=== PATIENT | female | born 2000 | race Caucasian/White ===

== ENCOUNTER 2022-01-27 14:45 | Inpatient (IN) | payer MEDICAID ==
[~2022-01-27] VITALS: Ht 165.1 cm; Wt 103.0 kg
[2022-01-27] MEDS ORDERED: METHYLERGONOVINE 0.2 MG/ML AMP IM PRN (15:10)
[2022-01-27] MEDS ORDERED: CARBOPROST 250 MCG/ML AMP IM PRN (15:10)
[2022-01-27] MEDS ORDERED: MORPHINE SULFATE 2 MG/ML SYR IVP PRN (15:40)
[2022-01-27 15:43] LABS: BASOPHILS % (AUTO) 0.3 % (0.0-2.0); EOSINOPHILS # (AUTO) 0.1 K/uL (0-0.4); EOSINOPHILS % (AUTO) 0.5 % (0.0-4.0); HEMATOCRIT 37.5 % (36-48); HEMOGLOBIN 12.5 g/dL (12.0-16.0); LYMPHOCYTES # (AUTO) 2.2 K/uL (2.5-16.5); LYMPHOCYTES % (AUTO) 21.6 % (20.5-51.1); MEAN CORPUSCULAR HEMOGLOBIN 28 pg (27-31); MEAN CORPUSCULAR HGB CONC 33 g/dL (33-37); MEAN CORPUSCULAR VOLUME 83.8 fL (80-94); MONOCYTES # (AUTO) 0.7 K/uL (0.8-1.0); MONOCYTES % (AUTO) 7.4 % (1.7-9.3); NEUTROPHILS % (AUTO) 70.2 % (42.2-75.2); PLATELET COUNT (AUTO) 241 K/uL (140-450); RED BLOOD CELL COUNT(AUTO) 4.47 MIL/uL (4.20-5.40); RED CELL DISTRIBUTION WIDTH 15.2 % (11.6-13.7)
[2022-01-27] MEDS: LACTATED RINGERS 1,000 ML IV SCH (16:05)
[2022-01-27 16:13] LABS: APPEARANCE,URINE CLEAR (CLEAR); BILIRUBIN,URINE NEGATIVE (NEGATIVE); BLOOD, URINE TRACE-I (NEGATIVE); COLOR,URINE YELLOW (YELLOW); LEUKOCYTE ESTERASE ,URINE NEGATIVE (NEGATIVE); NITRITE, URINE NEGATIVE (NEGATIVE); UGLUCOSE NEGATIVE (NEGATIVE)
[2022-01-27] MEDS ORDERED: AMPICILLIN 2,000 MG in NACL 0.9% 100 ML IV SCH (16:20)
[2022-01-27] MEDS ORDERED: OXYTOCIN 20 UNITS in LACTATED RINGERS 1,000 ML IV SCH (16:20)
[2022-01-27 16:23] LABS: ALBUMIN 2.6 g/dL (3.4-5.0); CARBON DIOXIDE 24.7 mmol/L (21-32); CREATININE 0.6 mg/dL (0.6-1.3); POTASSIUM 3.7 mmol/L (3.5-5.1); TOTAL BILIRUBIN 0.2 mg/dL (0.0-1.0)
[2022-01-27] MEDS ORDERED: AMPICILLIN 2,000 MG VIAL ONE (16:33)
[2022-01-27 17:08] LABS: RBC,URINE 0-5 /HPF (0-5); WBC,URINE NONE SEEN /HPF (0-5)
[2022-01-27 17:20] LABS: PROTHROMBIN TIME 10.6 secs (10.8-13.4)
[2022-01-27] MEDS ORDERED: AMPICILLIN 1,000 MG in NACL 0.9% 50 ML IV SCH (20:00)
[2022-01-27] MEDS ORDERED: OXYTOCIN 20 UNITS/LR PREMIX 1,000 ML IV ONE (20:09)
[2022-01-27] MEDS ORDERED: AMPICILLIN 1,000 MG VIAL ONE (20:32)
[2022-01-27] MEDS ORDERED: MORPHINE SULFATE 10 MG/ML VIAL ONE (22:49)
[2022-01-27] MEDS: ONDANSETRON 4 MG/2 ML VIAL IVP PRN (22:56)
[2022-01-28] MEDS: LACTATED RINGERS 1,000 ML IV SCH ×2 (00:02→01:01)
[2022-01-28] MEDS ORDERED: ROPIVACAINE 0.2%/NS PREMIX 200 ML EPI ONE (00:21)
[2022-01-28] MEDS ORDERED: fentaNYL citrate 0.05 MG/ML VIAL ONE (00:21)
[2022-01-28] MEDS: ONDANSETRON 4 MG/2 ML VIAL IVP PRN (05:12)
[2022-01-28] MEDS ORDERED: BENZOCAINE/MENTHOL 20%-0.5% 60 GM CAN TP PRN (10:50)
[2022-01-28] MEDS ORDERED: OXYTOCIN 10 UNITS/ML VIAL IM PRN (10:50)
[2022-01-28] MEDS ORDERED: METHYLERGONOVINE 0.2 MG TAB PO PRN (10:50)
[2022-01-28] MEDS ORDERED: MEASLES, MUMPS, AND RUBELLA 1 VIAL SQVAC ONE (10:50)
[2022-01-28] MEDS ORDERED: METHYLERGONOVINE 0.2 MG/ML AMP IM PRN (10:50)
--- NOTE | 2022-01-28 10:59 | NUR ---
PATIENT HAS BEEN SCREENED AND CATEGORIZED LOW NUTRITION RISK. PATIENT WILL BE SEEN WITHIN 7 DAYS OF ADMISSION. 02/03/22 REVIEWED BY ZOEY HOFFMAN [address]
[2022-01-28] MEDS ORDERED: MEASLES, MUMPS, AND RUBELLA 1 VIAL SQVAC SCH (11:15)
[2022-01-28] MEDS: IBUPROFEN 800 MG TAB PO PRN (15:01)
[2022-01-28] MEDS ORDERED: HYDROcodone/APAP 5/325 MG 1 TAB TAB PO SCH (18:50)
[2022-01-28] MEDS ORDERED: HYDROcodone/APAP 5/325 MG 1 TAB TAB ONE (18:53)
[2022-01-29] MEDS: IBUPROFEN 800 MG TAB PO PRN (03:25)
[2022-01-29 10:14] LABS: HEMOGLOBIN 10.9 g/dL (12.0-16.0)
== END 2022-01-29 13:30 | disposition home or self-care (01) | DRG 560 ==
LOC: MLD 14:45 → MFCC 01-28 10:31
PROVIDERS: ADMIT Obstetrics & Gynecology; ATTEND Obstetrics & Gynecology
PROC: 10E0XZZ Delivery of Products of Conception, External Approach (ICD-10-PCS; principal; 2022-01-27)
PROC: 0KQM0ZZ Repair Perineum Muscle, Open Approach (ICD-10-PCS; 2022-01-27)
PROC: 3E0R3BZ Introduction of Anesthetic Agent into Spinal Canal, Percutaneous Approach (ICD-10-PCS; 2022-01-27)
PROC: 00HU33Z Insertion of Infusion Device into Spinal Canal, Percutaneous Approach (ICD-10-PCS; 2022-01-27)
DX: O69.1XX0 Labor and delivery complicated by cord around neck, with compression, not applicable or unspecified (principal); Z37.0 Single live birth; O70.1 Second degree perineal laceration during delivery; Z3A.39 39 weeks gestation of pregnancy; Z20.822 Contact with and (suspected) exposure to COVID-19; O90.81 Anemia of the puerperium
CPT/HCPCS: 36415; 51702; 59070; 76815; 80053; 81001; 85018; 85025; 85610; 85730; 86592; 86886; 86900; 86901; 87653-90; 90715; J0290; J2270; J2405; J2590; J2795; J3010; J7120; Q0092

== ENCOUNTER 2023-04-18 22:47 | Inpatient (IN) | payer MEDICAID ==
[~2023-04-18] VITALS: Ht 165.1 cm; Wt 107.5 kg
[2023-04-18 23:00] VITALS: BP 114/76; PULSE 76; RESP 18; TEMP 98.3
[2023-04-18] MEDS ORDERED: LACTATED RINGERS 1,000 ML IV SCH (23:10)
[2023-04-18] MEDS ORDERED: OXYTOCIN/0.9 % SODIUM CHLORIDE 500 ML IV SCH (23:10)
[2023-04-18] MEDS ORDERED: METHYLERGONOVINE 0.2 MG/ML AMP IM PRN (23:10)
[2023-04-18] MEDS ORDERED: AMPICILLIN 2,000 MG VIAL ONE (23:49)
[2023-04-18] MEDS: AMPICILLIN 2,000 MG in NACL 0.9% MINI-BAG PLUS 100 ML IV ONE (23:53)
[2023-04-18 23:56] VITALS: BP 121/74; PULSE 72; RESP 18
[2023-04-18] MEDS: MORPHINE SULFATE 10 MG/ML VIAL IVP PRN (23:56)
[2023-04-18] MEDS: ONDANSETRON 4 MG/2 ML VIAL IVP PRN (23:59)
[2023-04-19] MEDS ORDERED: AMPICILLIN 1,000 MG in NACL 0.9% MINI-BAG PLUS 50 ML IV SCH
[2023-04-19] MEDS ORDERED: LIDOCAINE 1% 500 MG/50 ML VIAL ONE (00:30)
[2023-04-19] MEDS ORDERED: TRANEXAMIC ACID 1,000 MG/10 ML VIAL ONE (00:55)
[2023-04-19] MEDS: CARBOPROST 250 MCG/ML AMP IM PRN (01:10)
[2023-04-19 01:18] LABS: BASOPHILS % (AUTO) 0.3 % (0.0-2.0); EOSINOPHILS # (AUTO) 0.1 K/uL (0-0.4); EOSINOPHILS % (AUTO) 0.7 % (0.0-4.0); HEMATOCRIT 36.7 % (36-48); HEMOGLOBIN 12.5 g/dL (12.0-16.0); LYMPHOCYTES # (AUTO) 1.7 K/uL (2.5-16.5); LYMPHOCYTES % (AUTO) 16.7 % (20.5-51.1); MEAN CORPUSCULAR HEMOGLOBIN 28 pg (27-31); MEAN CORPUSCULAR HGB CONC 34 g/dL (33-37); MEAN CORPUSCULAR VOLUME 82.3 fL (80-94); MONOCYTES # (AUTO) 0.9 K/uL (0.8-1.0); MONOCYTES % (AUTO) 9.1 % (1.7-9.3); NEUTROPHILS # (AUTO) 7.3 K/uL (1.8-7.7); NEUTROPHILS % (AUTO) 73.2 % (42.2-75.2); PLATELET COUNT (AUTO) 202 K/uL (140-450); RED BLOOD CELL COUNT(AUTO) 4.46 MIL/uL (4.20-5.40); RED CELL DISTRIBUTION WIDTH 15.6 % (11.6-13.7)
[2023-04-19 01:23] LABS: APPEARANCE,URINE HAZY (CLEAR); BILIRUBIN,URINE NEGATIVE (NEGATIVE); BLOOD, URINE 2+ (NEGATIVE); COLOR,URINE YELLOW (YELLOW); LEUKOCYTE ESTERASE ,URINE 3+ (NEGATIVE); NITRITE, URINE NEGATIVE (NEGATIVE); PH,URINE 6.5 (5.0-9.0); PROTEIN,URINE NEGATIVE (NEGATIVE); UGLUCOSE NEGATIVE (NEGATIVE); UROBILINOGEN,URINE 0.2 EU/dL (0.2 - 1)
[2023-04-19] MEDS ORDERED: fentaNYL citrate 0.05 MG/ML VIAL IVP ONE (01:35)
[2023-04-19] MEDS: fentaNYL citrate 0.05 MG/ML VIAL ONE (01:38)
[2023-04-19 01:40] LABS: INR 0.98 (0.8-1.2); PARTIAL THROMBOPLASTIN TIME 29.4 secs (22-35.6); PROTHROMBIN TIME 10.3 secs (10.8-13.4)
[2023-04-19 01:42] LABS: ALBUMIN 2.5 g/dL (3.4-5.0); ANION GAP 14.4 (8-16); CALCIUM 8.3 mg/dL (8.5-10.1); CARBON DIOXIDE 21.7 mmol/L (21-32); CREATININE 0.6 mg/dL (0.6-1.3); POTASSIUM 4.1 mmol/L (3.5-5.1); TOTAL BILIRUBIN 0.2 mg/dL (0.0-1.0); TOTAL PROTEIN, SERUM 6.7 g/dL (6.4-8.2)
[2023-04-19 01:53] LABS: AMPHETAMINE, URINE NEGATIVE ng/ml (NEG <=1000); BARBITURATE, URINE NEGATIVE ng/ml (NEG <=200); BENZODIAZEPINE, URINE NEGATIVE ng/mL (NEG <=200); CANNABINOID, URINE NEGATIVE ng/mL (NEG <=50); COCAINE, URINE NEGATIVE ng/mL (NEG <=300); OPIATE, URINE NEGATIVE ng/mL (NEG <=2000); PHENCYCLIDINE SCREEN,URINE NEGATIVE ng/mL (NEG <=25)
[2023-04-19 01:55] LABS: BACTERIA,URINE 3+ /HPF (None Seen); RBC,URINE 0-5 /HPF (0-5); SQUAMOUS EPITHELIAL CELL,UR 20-50 /LPF (0-3 (FEW)); WBC,URINE TOO MANY TO COUNT /HPF (0-5)
[2023-04-19] MEDS ORDERED: ceFAZolin 2,000 MG VIAL ONE (03:14)
[2023-04-19] MEDS ORDERED: MIDAZOLAM 2 MG/2 ML VIAL ONE (03:16)
[2023-04-19] MEDS ORDERED: fentaNYL citrate 0.05 MG/ML VIAL ONE (03:16)
[2023-04-19] MEDS ORDERED: HYDROmorphone 1 MG/ML AMP IVP PRN (04:20)
[2023-04-19] MEDS ORDERED: diphenhydrAMINE 50 MG/ML VIAL IVP PRN (04:20)
[2023-04-19] MEDS ORDERED: MAGN250T6 PO (04:37)
[2023-04-19] MEDS ORDERED: CYCL-711 PO (04:37)
[2023-04-19] MEDS ORDERED: MEPERIDINE 25 MG/ML SYR ONE (04:52)
[2023-04-19] MEDS: MEPERIDINE 25 MG/ML SYR IVP PRN (04:57)
[2023-04-19] MEDS ORDERED: oxyCODONE/APAP 5/325 MG 1 TAB TAB PO PRN (06:05)
[2023-04-19] MEDS ORDERED: BENZOCAINE/MENTHOL 20%-0.5% 60 GM CAN TP PRN (06:05)
[2023-04-19] MEDS ORDERED: TEMAZEPAM 15 MG CAP PO PRN (06:05)
[2023-04-19] MEDS ORDERED: OXYTOCIN 10 UNITS/ML VIAL IM PRN (06:05)
[2023-04-19] MEDS ORDERED: METHYLERGONOVINE 0.2 MG/ML AMP IM PRN (06:05)
[2023-04-19] MEDS ORDERED: METHYLERGONOVINE 0.2 MG TAB PO PRN (06:05)
[2023-04-19] MEDS: LACTATED RINGERS 1,000 ML IV SCH (06:32)
[2023-04-19] MEDS: ONDANSETRON 4 MG/2 ML VIAL IVP PRN (11:34)
[2023-04-19] MEDS: HYDROcodone/APAP 5/325 MG 1 TAB TAB PO PRN (16:01)
[2023-04-19] MEDS: IBUPROFEN 800 MG TAB PO PRN (20:09)
[2023-04-20 05:55] LABS: HEMATOCRIT 33.5 % (36-48); HEMOGLOBIN 11.4 g/dL (12.0-16.0)
[2023-04-21] MEDS: FLU VACCINE QS2023-24 0.5 ML SYR IMVAC ONE (00:06)
== END 2023-04-21 12:55 | disposition home or self-care (01) | DRG 542 ==
LOC: MLD 22:47 → OBSVTOIN 22:47 → MFCC 04-19 05:51
PROVIDERS: ADMIT Obstetrics & Gynecology; ATTEND Obstetrics & Gynecology
PROC: 0DQR0ZZ Repair Anal Sphincter, Open Approach (ICD-10-PCS; 2023-04-19)
PROC: 10E0XZZ Delivery of Products of Conception, External Approach (ICD-10-PCS; 2023-04-19)
PROC: 30233N1 Transfusion of Nonautologous Red Blood Cells into Peripheral Vein, Percutaneous Approach (ICD-10-PCS; principal; 2023-04-19 03:45)
DX: O69.81X0 Labor and delivery complicated by cord around neck, without compression, not applicable or unspecified (principal); Z37.0 Single live birth; O70.20 Third degree perineal laceration during delivery, unspecified; Z20.822 Contact with and (suspected) exposure to COVID-19; Z3A.38 38 weeks gestation of pregnancy
CPT/HCPCS: 36415; 59409; 80053; 80305; 81001; 85018; 85025; 85610; 85730; 86592; 86762; 86886; 86900; 86901; 86920; 87086; 87340; 87653-90; J0290; J0690; J2001; J2175; J2250; J2270; J2405; J2590; J3010; J3490; J7060; P9016